=== PATIENT | female | born 1955 | race Caucasian/White ===

== ENCOUNTER 2017-02-03 18:00 | Inpatient (IN) | payer MEDICAID, OTHER, SELFPAY ==
[~2017-02-03] VITALS: Ht 165.1 cm; Wt 88.0 kg
[~2017-02-03 18:00] MED LIST: ACET50TAOT PO; ALB2.5NEB NEB; AUGM875T28 PO; BACT800T5 PO; NICO7PA TD
[2017-02-03] MEDS ORDERED: ACETAMINOPHEN 325 MG TAB As Ordered ONE (18:35)
[2017-02-03] MEDS ORDERED: ACETAMINOPHEN TAB 650MG DOSE (2X325MG) PO ONE (18:45)
[2017-02-03] MEDS ORDERED: NS 1,000 ML IV ONE ×2 (19:00→20:15)
[2017-02-03 19:27] LABS: BASO % 0.2 % (0.0-1.0); EOS # 0.1 10^3/uL (0.0-0.50); EOS % 0.3 % (0.0-3.0); IMMATURE GRANULOCYTE % 0.8 % (0-0); LYMPH # 0.5 10^3/uL (1.5-4.5); LYMPH % 3.4 % (24.0-44.0); MEAN CORPUSCULAR HEMOGLOBIN 24.3 pg (27.0-33.0); MEAN CORPUSCULAR HGB CONC 29.6 g/dl (32.0-36.5); MEAN CORPUSCULAR VOLUME 82.2 fl (80.0-96.0); MONO % 6.5 % (0.0-5.0); NEUTROPHILS # 13.9 10^3/uL (1.8-7.7); NEUTROPHILS % 88.8 % (36.0-66.0); PLATELET COUNT, AUTOMATED 239 10^3/uL (150-450); WHITE BLOOD COUNT 15.6 10^3/uL (4.0-10.0)
[2017-02-03 19:31] LABS: ADD MORPHOLOGY? YES; POSITIVE MORPH POS FLAG; RED CELL DISTRIBUTION WIDTH 20.6 % (11.5-14.5)
[2017-02-03 19:53] LABS: ALBUMIN 1.7 GM/DL (3.2-5.2); ALBUMIN/GLOBULIN RATIO 0.34 (1.00-1.93); ALKALINE PHOSPHATASE 145 U/L (45-117); ALT/SGPT 29 U/L (12-78); AMYLASE 17 U/L (25-115); ANION GAP 7 MEQ/L (8-16); AST/SGOT 102 U/L (15-37); BILIRUBIN,DIRECT 0.1 MG/DL (0.0-0.2); BILIRUBIN,TOTAL 0.3 MG/DL (0.2-1.0); BLOOD UREA NITROGEN 15 MG/DL (7-18); CALCIUM LEVEL 7.9 MG/DL (8.5-10.1); CARBON DIOXIDE LEVEL 25 MEQ/L (21-32); CHLORIDE LEVEL 101 MEQ/L (98-107); CREATININE FOR GFR 0.63 MG/DL (0.55-1.02); GLOMERULAR FILTRATION RATE > 60.0 (>51); GLUCOSE, FASTING 113 MG/DL (70-105); POTASSIUM SERUM 4.3 MEQ/L (3.5-5.1); SODIUM LEVEL 133 MEQ/L (136-145); TOTAL PROTEIN 6.7 GM/DL (6.4-8.2)
[2017-02-03 20:03] LABS: ANISOCYTOSIS 2+; HYPOCHROMASIA 1+; MICROCYTOSIS 1+; OVALOCYTES 1+; POIKILOCYTOSIS 1+
[2017-02-03] MEDS ORDERED: PIPERACILLIN/TAZOBACTAM SOD 3.375 GM in D5W 50 ML IV ONE (20:15)
[2017-02-03 20:20] LABS: INR 1.13
--- NOTE | 2017-02-03 20:30 | REPUSA ---
CLINICAL HISTORY: Pain. COMPARISON: 12/26/2015. TECHNIQUE: Multiple axial, coronal, sagittal CT images were obtained through the abdomen and pelvis without administration of oral or IV contrast material. COMMENTS: The liver is markedly lobulated and demonstrates scattered masses throughout the liver most compatibl e with metastatic disease. The masses are difficult to evaluate without intravenous contrast. Furth er evaluation is recommended with CT performed with hepatic protocol. The mass appears to measure up to 7 cm in diameter. 2.4 cm cyst is present in the right hepatic lobe. The spleen is normal. The gallbladder is within normal limits. The pancreas is of normal contour and attenuation characteristi cs. There is no evidence of adrenal mass. The kidneys are normal in size, shape and configuration. No renal or ureteral calculi are identified . There is no hydroureter or hydronephrosis. There is no evidence for appendicitis. No evidence for small or large bowel obstruction. There is n o evidence of abdominal ascites or lymphadenopathy. There is no evidence of intrinsic or extrinsic bladder mass. There is evidence of a large necrotic right inguinal mass which has markedly enlarged since the prior study now measures 9 x 8 cm. This is associated with marked nodular skin thickening. There is a nelson ggestion of internal cavitation necrosis. There is evidence of marked left inguinal adenopathy, lymp h nodes measuring up to 2.4 cm in cross section. There is also evidence of severe nodular wall thickening involving anus and rectum compatible with ma lignancy. Further evaluation with CT performed with intravenous and oral contrast is recommended. Images of the lung bases show no evidence of pleural or parenchymal mass. There are no pleural effus ions. The bony structures are free of lytic or blastic lesions. IMPRESSION: 1. The liver is markedly lobulated and demonstrates scattered masses throughout the liver most constantin tible with metastatic disease. The masses are difficult to evaluate without intravenous contrast. 2. Large right inguinal mass which has markedly enlarged since the prior study now measures 9 x 8 cm . This is associated with marked nodular skin thickening. Marked left inguinal adenopathy. 3. Severe nodular wall thickening involving anus and rectum compatible with malignancy. 4. Further evaluation with CT performed with intravenous and oral contrast is recommended.
[2017-02-03 20:55] LABS: FERRITIN 137 NG/ML (8-252); PERCENT SATURATION 6.5 % (13.2-45.0); TOTAL IRON BINDING CAPACITY 184 UG/DL (250-450)
[2017-02-03] MEDS ORDERED: TRIPOIN11 EXT (21:10)
[2017-02-03] MEDS ORDERED: VANCOMYCIN HCL 1,000 MG, VIAL MATE ADAPTER 1 EACH in D5W 250 ML IV SCH (22:15)
[2017-02-03] MEDS ORDERED: ONDANSETRON 4MG/2ML VIAL (J2405) IV PRN (22:15)
[2017-02-03] MEDS ORDERED: ACETAMINOPHEN TAB 650MG DOSE (2X325MG) PO PRN (22:15)
--- NOTE | 2017-02-03 22:29 | HPEPDOC ---
General Date of Admission 02/03/17 Primary Care Physician: Buck Funes MD Attending Physician: Hansel Hale MD Chief Complaint The patient is a 61-year-old female admitted with a reason for visit of PAIN. 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 The patient states that she has felt subjectively febrile, and notes that the mass/skin lesion on her right groin has also been more uncomfortable. She denies any acute complaints of lightheadedness, dizziness, chest pain, palpitations, abdominal pain, or any nausea/vomiting. In the ER, the patient was noted to be febrile with a MAXIMUM TEMPERATURE of 101.0. In addition, the patient was also noted to have a white blood cell count of 15.6. A CT scan of the abdomen/pelvis revealed markedly lobulated scattered masses throughout the Liver compatible with possible metastatic disease. In addition, the patient was noted to have an enlargement of the previously noted right inguinal mass with nodular skin thickening. The patient will be admitted to the [facility] service for further evaluation and management. Home Medications Scheduled PRN (Triple Antibiotic [phone]) 1 Oin Oin, 1 OIN EXT TID PRN for WOUNDS/SPIDER BITES, (Reported) Allergies Coded Allergies: Codeine (Verified Allergy, Mild, ITCHING, 07/20/12) Latex (Verified Allergy, Mild, ITCHING, 07/20/12) Ibuprofen (Unverified Allergy, Unknown, 12/26/15) NSAIDs (Unverified Adverse Reaction, Severe, BLEEDING, 02/03/17) Past Medical History Medical History As noted in HPI. Family History Significant Family History: No pertinent family hx Social History * Smoker: former Smoker Alcohol: occationally Drugs: denies Lives with her boyfriend. Review of Symptoms Other systems 10 point review of systems negative unless otherwise specified in HPI. Physical Examination General Exam: Positive: Alert, Cooperative, No Acute Distress ENT Exam: Positive: Atraumatic, Mucous membr. moist/pink Neck Exam: Negative: JVD Chest Exam: Positive: Clear to auscultation, Normal air movement Heart Exam: Positive: Tachycardic, Normal S1, Normal S2 Telemetry: Positive: Sinus Abdomen Exam: Positive: Soft, Negative: Tenderness Extremity Exam: Positive: Other (Large Right Inguinal Mass with superficial ulceration noted, right buttock lesion noted as well) Psych Exam: Positive: Oriented x 3 Vital Signs Vital Signs Date Time Temp Pulse Resp B/P (MAP) Pulse Ox O2 Delivery O2 Flow Rate FiO2 02/03/17 18:45 101.0 123 20 94/54 (67) 100 Nasal Cannula 2.0 Laboratory Data Labs 24H Laboratory Tests 2 02/03/17 19:08: Immature Granulocyte % (Auto) 0.8H, White Blood Count 15.6H, Red Blood Count 3.04L, Hemoglobin 7.4L, Hematocrit 25.0L, Mean Corpuscular Volume 82.2, Mean Corpuscular Hemoglobin 24.3L, Mean Corpuscular Hemoglobin Concent 29.6L, Red Cell Distribution Width 20.6H, Platelet Count 239, Neutrophils (%) (Auto) 88.8H , Lymphocytes (%) (Auto) 3.4L, Monocytes (%) (Auto) 6.5H, Eosinophils (%) (Auto ) 0.3, Basophils (%) (Auto) 0.2, Neutrophils # (Auto) 13.9H, Lymphocytes # (Auto ) 0.5L, Monocytes # (Auto) 1.0H, Eosinophils # (Auto) 0.1, Basophils # (Auto) 0.0, Immature Granulocyte # (Auto) 0.1H, Nucleated Red Blood Cells % (auto) 0.0 , Platelet Estimate NORMAL, Hypochromasia 1+, Poikilocytosis 1+, Anisocytosis 2+ , Microcytosis 1+, Macrocytosis 1+, Ovalocytes 1+, Anion Gap 7L, Glomerular Filtration Rate > 60.0, Calcium Level 7.9L, Iron Level 12L, Total Iron Binding Capacity 184L, Transferrin % Saturation 6.5L, Ferritin 137, Aspartate Amino Transf (AST/SGOT) 102H, Alanine Aminotransferase (ALT/SGPT) 29, Alkaline Phosphatase 145H, Total Bilirubin 0.3, Direct Bilirubin 0.1, Total Creatine Kinase 45, Creatine Kinase MB 1.0, Creatine Kinase MB Relative Index 2.22, Troponin I < 0.02, Total Protein 6.7, Albumin 1.7L, Albumin/Globulin Ratio 0.34L , Amylase Level 17L, Lipase 86 02/03/17 19:11: Lactic Acid Level 1.8 02/03/17 19:46: Prothrombin Time 14.7H, Prothromb Time International Ratio 1.13, Activated Partial Thromboplast Time 34.1 CBC/BMP Laboratory Tests 02/03/17 19:08 Red Blood Count 3.04 L, Mean Corpuscular Volume 82.2, Mean Corpuscular Hemoglobin 24.3 L, Mean Corpuscular Hemoglobin Concent 29.6 L, Red Cell Distribution Width 20.6 H, Neutrophils (%) (Auto) 88.8 H, Lymphocytes (%) (Auto ) 3.4 L, Monocytes (%) (Auto) 6.5 H, Eosinophils (%) (Auto) 0.3, Basophils (%) ( Auto) 0.2, Neutrophils # (Auto) 13.9 H, Lymphocytes # (Auto) 0.5 L, Monocytes # (Auto) 1.0 H, Eosinophils # (Auto) 0.1, Basophils # (Auto) 0.0 Microbiology Microbiology 02/03/17 Blood Culture, Received Pending 02/03/17 Blood Culture, Received Pending Plan / VTE VTE Prophylaxis Ordered?: Yes Plan Plan Sepsis possibly 2/2 Cellulitis of Large Right Inguinal Mass with notable skin thickening Ct abd/pel results noted WBC 15.6K, T. Max 101.0 in the ER Blood Cultures ordered Empirically covered with vancomycin and Zosyn Consider surgical consultation in the a.m., as the patient was seen last year by Dr. Umaña for management of the same Squamous cell carcinoma of the Anus Diagnosed in September [address] [facility] [address] scan of the abdomen/pelvis on admission revealed markedly lobulated scattered masses throughout the Liver compatible with possible metastatic disease. The patient has maintained that she does not want to undergo any further chemotherapy or radiation Goals of care were discussed in the ER--the patient is DNR/DNI, and a MOLST form was completed At this time, the patient states that she would like to continue with medical treatment including IV fluid hydration and IV antibiotics. The patient does state that she is interested in hospice, and they have been consulted. PFS also consulted Leukocytosis likely 2/2 above WBC 15.6K on admission Cont mgmt above Normocytic Anemia likely 2/2 Underlying Cancer Pt denies any dark colored stools, or active bleeding Anemia panel ordered 1 Unit of PRBC's ordered for hgb <8 We will cont to monitor hgb DVT Prophylaxis SCDs/TEDs Poor Prognosis discussed with patient and two sister in laws extensively at the bedside. The patient is aware of this, and hence would like to pursue hospice. The patient will be admitted to the service of Dr. Hale, of the [facility] physician group. They will begin to follow the patient on at 7 AM. JARAD ABREU MD Feb 03, 2017 22:29
[2017-02-03] MEDS ORDERED: VANCOMYCIN HCL 1,000 MG, VIAL MATE ADAPTER 1 EACH in D5W 250 ML IV ONE (23:00)
[2017-02-04] VITALS (7 sets, daily range): BP systolic 92–122; BP diastolic 40–59
--- NOTE | 2017-02-04 01:09 | REP ---
Clinical: Pain . Comparison: 12/25/2015 . Findings: The mediastinum and cardiac silhouette are stable and within normal limits for portable technique. The lung taylor are clear without acute consolidation, effusion, or pneumothorax. Skeletal structures are intact. Impression: No acute cardiopulmonary process appreciated. Signed by Jean Garcia MD 02/04/2017 01:01 A
[2017-02-04] MEDS: traMADol 50 MG TAB PO PRN ×2 (01:10→17:53)
[2017-02-04] MEDS: NS 1,000 ML IV SCH ×2 (02:19→17:54)
[2017-02-04] MEDS: PIPERACILLIN/TAZOBACTAM SOD 3.375 GM in D5W 50 ML IV SCH ×4 (02:21→21:23)
--- NOTE | 2017-02-04 03:28 | PHACANCOPD ---
PHARMACY VANCOMYCIN DOSING Pt Demographics Demographics Patient Age:61 , Weight: , Gender: female Adjusted Body Weight Date: 02/04/17, Adjusted Body Weight: [67.12] Kg Vancomycin Vancomycin indication: SEPSIS Vancomycin Target Ranges: 15-20 mcg/ml Vancomycin Load Y/N: No Load Dose Date Time Vancomycin Load Dose: Date: Time: Vancomycin Dose Date: 02/04/17. Current Vancomycin Dose: [750MG IV Q8H] Intermittent Dosing?: No Labs Labs Laboratory Tests 02/03/17 19:08 Red Blood Count 3.04 L, Mean Corpuscular Volume 82.2, Mean Corpuscular Hemoglobin 24.3 L, Mean Corpuscular Hemoglobin Concent 29.6 L, Red Cell Distribution Width 20.6 H, Neutrophils (%) (Auto) 88.8 H, Lymphocytes (%) (Auto ) 3.4 L, Monocytes (%) (Auto) 6.5 H, Eosinophils (%) (Auto) 0.3, Basophils (%) ( Auto) 0.2, Neutrophils # (Auto) 13.9 H, Lymphocytes # (Auto) 0.5 L, Monocytes # (Auto) 1.0 H, Eosinophils # (Auto) 0.1, Basophils # (Auto) 0.0 Micro Microbiology 02/03/17 Blood Culture, Received Pending 02/03/17 Blood Culture, Received Pending Creatinine Clearance Date:02/04/17. Creatinine Clearance: [101]CALCULATED. Pending Labs Vancomycin trough scheduled for 02/05@1300 Assessment and Plan Maintaining Current Dose?: Yes Reason for dose change: No Dose Change Pharmacist Note Pharmacist Note Date: 02/04/17. Pharmacist note:61YOF admitted w/sepsis(vanco trough goal 15-20) SCR=0.63,seaf=939.8 CALCULATED.TREATING WITH PIP/TAZO 3.375 GM Q6H AND Vancomycin per Pharmacy consult.Vanco 1 GM Iin ED@2300, then will begin Vancomycin 750mg iv q8h @ 0600.First trough is scheduled for 02/05@1300.-will continue to follow levels and labs NEVIN MELENDREZ PHARMACY Feb 04, 2017 03:28
[2017-02-04] MEDS: VANCOMYCIN HCL 750 MG, VIAL MATE ADAPTER 1 EACH in D5W 250 ML IV SCH ×3 (05:37→22:05)
[2017-02-04 05:52] LABS: BASO % 0.2 % (0.0-1.0); EOS # 0.1 10^3/uL (0.0-0.50); IMMATURE GRANULOCYTE % 1.3 % (0-0); LYMPH # 0.6 10^3/uL (1.5-4.5); LYMPH % 4.2 % (24.0-44.0); MEAN CORPUSCULAR HEMOGLOBIN 25.3 pg (27.0-33.0); MEAN CORPUSCULAR HGB CONC 30.8 g/dl (32.0-36.5); MEAN CORPUSCULAR VOLUME 81.9 fl (80.0-96.0); MONO # 0.9 10^3/uL (0.0-0.8); MONO % 6.6 % (0.0-5.0); NEUTROPHILS # 11.6 10^3/uL (1.8-7.7); NEUTROPHILS % 86.7 % (36.0-66.0); PLATELET COUNT, AUTOMATED 215 10^3/uL (150-450); RED CELL DISTRIBUTION WIDTH 19.4 % (11.5-14.5); WHITE BLOOD COUNT 13.4 10^3/uL (4.0-10.0)
[2017-02-04 06:11] LABS: ALBUMIN 1.5 GM/DL (3.2-5.2); ALBUMIN/GLOBULIN RATIO 0.36 (1.00-1.93); ALKALINE PHOSPHATASE 126 U/L (45-117); ALT/SGPT 23 U/L (12-78); ANION GAP 10 MEQ/L (8-16); AST/SGOT 80 U/L (15-37); BILIRUBIN,TOTAL 1.2 MG/DL (0.2-1.0); BLOOD UREA NITROGEN 16 MG/DL (7-18); CALCIUM LEVEL 7.5 MG/DL (8.5-10.1); CARBON DIOXIDE LEVEL 22 MEQ/L (21-32); CHLORIDE LEVEL 103 MEQ/L (98-107); CREATININE FOR GFR 0.69 MG/DL (0.55-1.02); GLOMERULAR FILTRATION RATE > 60.0 (>51); GLUCOSE, FASTING 103 MG/DL (70-105); MAGNESIUM LEVEL 1.8 MG/DL (1.8-2.4); POTASSIUM SERUM 3.8 MEQ/L (3.5-5.1); SODIUM LEVEL 135 MEQ/L (136-145); TOTAL PROTEIN 5.7 GM/DL (6.4-8.2)
--- NOTE | 2017-02-04 07:09 | ECGEPIP ---
Stationary ECG Study [facility] - ED Test Date: 2017-02-03 Pat Name: MARY RIBERA Department: Room: [place] [address] Gender: F [employer] Floor Installer: rn : 1955 Requested By: MARK Ferreira Order Number: [id number] Reading MD: Odalys Carmona Measurements Intervals [place] Rate: 129 P: 101 CO: 154 QRS: 89 QRSD: 88 T: 50 QT: 301 QTc: 442 Interpretive Statements SINUS TACHYCARDIA NONSPECIFIC ST & T-WAVE ABNORMALITY ABNORMAL RHYTHM ECG SIMILAR 12/25/15 Electronically Signed On 02-04-2017 7:09:28 EDT by Odalys Carmona
[2017-02-04] MEDS: FERROUS GLUCONATE 324 MG TAB PO SCH ×2 (10:31→21:23)
[2017-02-04 10:42] LABS: MEAN CORPUSCULAR HEMOGLOBIN 26.2 pg (27.0-33.0); MEAN CORPUSCULAR HGB CONC 31.7 g/dl (32.0-36.5); MEAN CORPUSCULAR VOLUME 82.7 fl (80.0-96.0); RED CELL DISTRIBUTION WIDTH 18.7 % (11.5-14.5); WHITE BLOOD COUNT 13.4 10^3/uL (4.0-10.0)
[2017-02-04] MEDS ORDERED: SLF 3 ML SYR IV PRN (12:15)
[2017-02-04] MEDS: SLF 3 ML SYR IV SCH ×2 (14:27→21:23)
[2017-02-05] VITALS (8 sets, daily range): BP systolic 90–110; BP diastolic 44–59
[2017-02-05] MEDS: traMADol 50 MG TAB PO PRN ×2 (02:26→18:41)
[2017-02-05] MEDS: PIPERACILLIN/TAZOBACTAM SOD 3.375 GM in D5W 50 ML IV SCH ×5 (02:27→20:48)
[2017-02-05] MEDS: SLF 3 ML SYR IV SCH ×3 (05:07→20:35)
[2017-02-05] MEDS: VANCOMYCIN HCL 750 MG, VIAL MATE ADAPTER 1 EACH in D5W 250 ML IV SCH ×4 (05:07→22:06)
[2017-02-05 06:34] LABS: MEAN CORPUSCULAR HEMOGLOBIN 25.5 pg (27.0-33.0); MEAN CORPUSCULAR HGB CONC 30.5 g/dl (32.0-36.5); MEAN CORPUSCULAR VOLUME 83.6 fl (80.0-96.0); PLATELET COUNT, AUTOMATED 238 10^3/uL (150-450); RED CELL DISTRIBUTION WIDTH 19.3 % (11.5-14.5); WHITE BLOOD COUNT 10.7 10^3/uL (4.0-10.0)
[2017-02-05 06:51] LABS: ALBUMIN 1.5 GM/DL (3.2-5.2); ALBUMIN/GLOBULIN RATIO 0.31 (1.00-1.93); ALKALINE PHOSPHATASE 156 U/L (45-117); ALT/SGPT 25 U/L (12-78); ANION GAP 9 MEQ/L (8-16); AST/SGOT 76 U/L (15-37); BILIRUBIN,TOTAL 0.5 MG/DL (0.2-1.0); BLOOD UREA NITROGEN 9 MG/DL (7-18); CARBON DIOXIDE LEVEL 21 MEQ/L (21-32); CHLORIDE LEVEL 104 MEQ/L (98-107); CREATININE FOR GFR 0.71 MG/DL (0.55-1.02); GLOMERULAR FILTRATION RATE > 60.0 (>51); GLUCOSE, FASTING 146 MG/DL (70-105); MAGNESIUM LEVEL 1.8 MG/DL (1.8-2.4); POTASSIUM SERUM 3.6 MEQ/L (3.5-5.1); SODIUM LEVEL 134 MEQ/L (136-145); TOTAL PROTEIN 6.4 GM/DL (6.4-8.2)
[2017-02-05] MEDS: FERROUS GLUCONATE 324 MG TAB PO SCH ×2 (09:48→20:34)
[2017-02-05] MEDS: INFLUENZA QUADRIVALENT PF VACCINE 0.5ML SYRINGE (90686) IM ONE (13:43)
[2017-02-05] MEDS ORDERED: INFLUENZA QUADRIVALENT PF VACCINE 0.5ML SYRINGE (90686) IM PRN (15:00)
--- NOTE | 2017-02-05 17:50 | CR ---
DATE OF CONSULTATION: 02/05/2017 REASON FOR CONSULTATION: Right groin mass. HISTORY OF PRESENT ILLNESS The patient is 61-year-old female who presents to the emergency room (ER) on 02/03/2017, with a chief complaint of right groin pain, bilateral lower extremity pains and fever. She has been treated for squamous cell carcinoma of the anus that was diagnosed in September 2015. She underwent radiation but did avoid any chemotherapy. In December of last year, she was in the hospital for the same conditions, right groin pain with a palpable mass as well as a fever. She had a slight abscess at that time that was aspirated. No other surgeries were completed. Currently her base complaint is difficulty with movement. She has pain in her legs. It is hard for her to get in and out of bed, hard to walk. She also has a slight fever with an elevated white count in the ER. CT of the abdomen and pelvis shows masses throughout the abdomen and the liver suggestive of metastatic disease, as well as increase in size of the previously noted right inguinal mass with nodular skin thickening. She was then admitted with possible sepsis from this right groin mass and I was asked to evaluate. Currently she denies any fevers. The pain in the groin has subsided somewhat. She does have increased swelling in the legs that is new for her today. No other current complaints. She has again denied any help as far as chemotherapy from an oncology standpoint. No recent procedures. PAST MEDICAL HISTORY: The squamous cell carcinoma of the anus. PAST SURGICAL HISTORY: Negative. ALLERGIES: CODEINE, LATEX, IBUPROFEN, NON-STEROIDAL ANTI-INFLAMMATORY DRUGS (NSAIDS) HOME MEDICATIONS: Please see med rec. FAMILY HISTORY: Noncontributory. SOCIAL HISTORY: Denies any current drug, alcohol, tobacco usage. REVIEW OF SYSTEMS: Pertinent positives and negatives as stated in the history of present illness (HPI). PHYSICAL EXAMINATION: GENERAL: The patient is alert and oriented times three. No acute distress. VITALS: Temperature 97.2, pulse 96, respirations 20, blood pressure 90/50, pulse oximetry 94% on room air. HEENT: Pupils equal, round, reactive to light and accommodation. HEART: S1, S2. Regular rate and rhythm. LUNGS: Clear to auscultation bilaterally. ABDOMEN: Soft. Tenderness to palpation epigastric and bilateral lower quadrants. There is very large fungating mass with pustules and boils on the surface of it, originating from the right groin. EXTREMITIES: Bilateral lower extremity pitting edema. LABORATORY DATA: White count 10.7, hemoglobin 9.5, platelets 238. IMAGING: CT abdomen and pelvis shows liver markedly lobulated and demonstrates scattered masses throughout, most compatible with metastatic disease. Large right inguinal mass markedly enlarged since prior study, now 9 x 8 cm with nodular skin thickening, another left inguinal adenopathy, severe nodular wall thickening involving the anus and rectum compatible with malignancy. 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 This large mass in her right groin was present well over a year ago and has just continued to increase in size. This is likely all malignancy related. There are no signs of any fluid collections, nothing to drain at this time. There are some small pustules on the outside of this mass. However, recommended just continue treating with intravenous (IV) antibiotics as needed. There is no need for any surgical drainage at this time, and there is no reason for any biopsies since we already know what this mass and her disease process is. She has declined any further cancer treatment. Therefore, anything beyond this should be just considered a palliative course. Her biggest complaint to me was pain control and ambulation. I have recommended we have social security assessor and physical therapy (PT) work with her. Likely we will set her up with a wheelchair and a cane. Her primary service can help control her pain but from a surgical standpoint, there is nothing else that I had to offer her. She understood and was appreciative of making the chance to talk to her. At this point, there is nothing left to do from a surgery standpoint, and if anything else is needed, please feel free to ask.
--- NOTE | 2017-02-05 17:59 | IPNPDOC ---
Subjective Date Seen The patient was seen on 02/05/17. Subjective Chief Complaint/HPI The patient is a 61-year-old female admitted with a reason for visit of Sepsis. Events since last encounter Had conversation with patient regarding current health status. No other family members are present. Patient understands that she has a serious illness. She was told she has stage IV carcinoma. Expressed her wishes of not wanting a lot of interventions. She would like to explore her options. She did mention however she would like to continue to have blood transfusions and antibiotics if needed. She will be talking with surgery later for possible biopsy. Patient expressed that she wishes to in the hospital if possible. Expressed her interest of not going to hospice. Complaining of some aching in her lower legs due to immobility laying in bed. Says when she moves around the pain is better. Is having pain in her rectal area. The tramadol has been helping with this pain. Constitutional: Denies: Chills, Fever Pulmonary: Denies: Dyspnea Cardiovascular: Denies: Chest Pain Gastrointestinal: Denies: Nausea, Vomiting, Abdominal Pain Objective Physical Examination General Exam: Positive: Alert, Cooperative, No Acute Distress ENT Exam: Positive: Atraumatic, Mucous membr. moist/pink Neck Exam: Negative: JVD Chest Exam: Positive: Clear to auscultation, Normal air movement Heart Exam: Positive: Rate Normal, Normal S1, Normal S2, Negative: Murmurs Abdomen Exam: Positive: Soft, Negative: Tenderness Extremity Exam: Positive: Other (Large Right Inguinal Mass with superficial ulceration noted, large right buttock lesion noted as well) Psych Exam: Positive: Memory Intact, Oriented x 3 (Orientated to person, place and time.) Assessment /Plan Assessment 1. Sepsis Continue to monitor vitals. Monitor patient's blood pressure. CRP elevated. Continue patient on empiric antibiotic treatment with IV Vancomycin and Zosyn. May change antibiotics based on cultures and sensitivities. One preliminary blood culture returned Gram positive cocci. Repeats were performed and are pending. Sources of infection is potentially a right inguinal mass. Item Value Date Time C-Reactive Protein, Quantitative 17.20 MG/DL H 02/05/17 0623 2. History of squamous cell anal cancer Dr. Gonzales has been consulted. Patient has seen Dr. Gonzales in the past. Had discussion with patient regarding current health status. Expressed that we were looking into other options with surgery and oncology. Patient expressed some of her wishes regarding treatments. That she would not want a lot done but at the same time still wished for things such as transfusions and antibiotics. We'll continue to have a conversation tomorrow. 3. Right inguinal mass, nodular thickening Most likely metastasis from patient's anal cancer. Has been getting bigger and painful. Surgery has been consulted. Dr. Esquivel will see the patient to discuss options such as biopsy. Patient is on tramadol every 8 hours 50 mg for pain at this time. Noted that this is providing relief. 4. Possible metastasis from squamous cell cancer CT scan abdomen showed evidence of metastasis. Impression below: 1.The liver is markedly lobulated and demonstrates scattered masses throughout the liver most compatible with metastatic disease. The masses are difficult to evaluate without intravenous contrast. 2. Large right inguinal mass which has markedly enlarged since the prior study now measures 9 x 8 cm. This is associated with marked nodular skin thickening. Marked left inguinal adenopathy. 3. Severe nodular wall thickening involving anus and rectum compatible with malignancy. 4. Further evaluation with CT performed with intravenous and oral contrast is recommended. 5. Leukocytosis Continue to monitor. Repeat in the morning. Item Value Date Time White Blood Count 10.7 10^3/uL H 02/05/17 06 6. Normocytic anemia Continue to monitor. Repeat in the morning. Patient had received 2 units of blood upon admission. No need for transfusion at this time. Item Value Date Time Hemoglobin 9.5 g/dl L 02/05/17 06 Hematocrit 31.1 % L 02/05/17 06 Plan/VTE VTE Prophylaxis Ordered?: Yes Disposition Patient is a 61-year-old female with squamous cell carcinoma of the anus with possible metastasis. Oncology has been consulted. Prognosis is poor. Patient is septic and continuing treatment at this time with vancomycin and Zosyn. VS, I&O, 24H, Fishbone Vital Signs/I&O Vital Signs Date Time Temp Pulse Resp B/P (MAP) Pulse Ox O2 Delivery O2 Flow Rate FiO2 02/05/17 16:00 97.2 96 20 90/50 (63) 94 Room Air 02/03/17 18:45 2.0 I&O- Last 24 Hours up to 6 AM 02/06/17 06:00 Intake Total 660 ml Output Total 300 ml Balance 360 ml Laboratory Data 24H LABS Laboratory Tests 2 02/05/17 06:23: Anion Gap 9, Glomerular Filtration Rate > 60.0, Blood Urea Nitrogen 9, Creatinine 0.71, Sodium Level 134L, Potassium Level 3.6, Chloride Level 104, Carbon Dioxide Level 21, Calcium Level 8.0L, Aspartate Amino Transf (AST/SGOT) 76H, Alanine Aminotransferase (ALT/SGPT) 25, Alkaline Phosphatase 156H, Total Bilirubin 0.5#, Total Protein 6.4, Albumin 1.5L, Magnesium Level 1.8, C- Reactive Protein, Quantitative 17.20H, Albumin/Globulin Ratio 0.31L 02/05/17 06:24: Nucleated Red Blood Cells % (auto) 0.0 02/05/17 12:50: Vancomycin Level Trough 14.4 CBC/BMP Laboratory Tests 02/05/17 06:23 Calcium Level 8.0 L, Aspartate Amino Transf (AST/SGOT) 76 H, Alanine Aminotransferase (ALT/SGPT) 25, Alkaline Phosphatase 156 H, Total Bilirubin 0.5 #, Total Protein 6.4, Albumin 1.5 L 02/05/17 06:24 Red Blood Count 3.72 L, Mean Corpuscular Volume 83.6, Mean Corpuscular Hemoglobin 25.5 L, Mean Corpuscular Hemoglobin Concent 30.5 L, Red Cell Distribution Width 19.3 H Microbiology Microbiology 02/05/17 Blood Culture, Received Pending 02/05/17 Blood Culture, Received Pending 02/03/17 Blood Culture - Preliminary, Resulted No growth after 24 hours . All specim... 02/03/17 Blood Culture - Preliminary, Resulted 02/04/17 Urine Culture, Received Pending GME ATTESTATION GME ATTESTATION My preceptor for this patient encounter was physically present in the building during the encounter and was fully available. As needed, all aspects of the patient interview, examination, medical decision making process, and medical care plan development were reviewed and approved by the preceptor. Preceptor is aware and concurs with the plan as stated in the body of this note and will attest to such by his/her cosignature. LIAM HANNA DO Feb 05, 2017 17:47
--- NOTE | 2017-02-05 21:05 | CR ---
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 HISTORY OF PRESENT ILLNESS: Nanci Eisenberg is a 61-year-old female who I saw in December of 2015 after she presented with fever, sepsis and CT scan revealed perianal abscess which was treated with IV antibiotics. She carries a known diagnosis of anal squamous cell carcinoma diagnosed in September of 2015 which had been nucleated. She underwent incision and drainage of the inner abscess and was started on treatment for anal squamous cell carcinoma with concurrent chemoradiation. She only received day 1 of mitomycin as well as Xeloda as she did not followup on subsequent treatments. After multiple attempts to contact the patient, the patient was unreachable. The patient did not also show for radiation at that time. The patient presented to the emergency room on 02/05/2017 with fever and fatigue. CT scan of the abdomen and pelvis revealed scattered masses throughout her liver compatible with metastatic disease. She also had swollen right inguinal lymph nodes with nodular skin thickening. Medical oncology was consulted regarding management of now metastatic anal squamous cell carcinoma. The patient is lying in bed. She currently denies any abdominal pain. She tells me clearly that she does not want any form of treatment. She has opted for Hospice at this time. She tells me that the reason she did not return our calls or followup with treatment in 2016 was because she never wanted to continue her treatments and wanted to go on Hospice. The patient states in "I do not want that stuff called chemotherapy. I would rather go on Hospice". PAST MEDICAL HISTORY: Obesity. Depression. Cervical dysplasia. Status post surgery and colposcopy. Symptomatic anemia. MEDICATIONS AT HOME: Triple antibiotic ointment. ALLERGIES: CODEINE, LATEX, IBUPROFEN, NSAIDS. FAMILY HISTORY: No history of malignancy in her family. SOCIAL HISTORY: Prior history of tobacco use, 20 pack year history. She quit in 2016. No alcohol or illicit drug use. VITAL SIGNS: Temperature 98.3, pulse 98, blood pressure 99/51, heart rate 64. GENERAL: She is lying in bed. She is in no acute distress. HEENT: No pallor or icteric sclerae. Oral mucosa is moist. Oropharynx is clear. HEART: Regular rate and rhythm. No murmurs heard. LUNGS: Clear bilaterally. No wheeze, rhonchi or rales. ABDOMEN: Soft, nontender, nondistended. There no hepatosplenomegaly or masses. EXTREMITIES: No edema. LYMPHATICS: She has a large 5 cm right inguinal lymph node which expresses some purulent material. CT scan as stated of the abdomen and pelvis as stated above. IMPRESSION AND PLAN: 61-year-old female with metastatic anal squamous cell carcinoma with mets to liver based on imaging, and also mets to the inguinal lymph nodes. I discussed with the patient in detail regarding management and treatment of metastatic anal squamous cell carcinoma. She knows that this is an incurable malignancy although treatable. She has opted to go on Hospice and does not want any systemic form of chemotherapy. I discussed with her primary hospitalist, Dr. Rawls as well. I will be available to see the patient if she changes her mind, although Hospice is not an unreasonable option given that this is an incurable malignancy.
[2017-02-06] VITALS (7 sets, daily range): BP systolic 86–107; BP diastolic 46–58
[2017-02-06] MEDS: PIPERACILLIN/TAZOBACTAM SOD 3.375 GM in D5W 50 ML IV SCH ×2 (03:36→08:45)
[2017-02-06] MEDS: VANCOMYCIN HCL 750 MG, VIAL MATE ADAPTER 1 EACH in D5W 250 ML IV SCH (05:02)
[2017-02-06] MEDS: SLF 3 ML SYR IV SCH ×3 (05:02→20:44)
[2017-02-06 05:34] LABS: BASO % 0.4 % (0.0-1.0); EOS # 0.2 10^3/uL (0.0-0.50); IMMATURE GRANULOCYTE % 1.2 % (0-0); LYMPH # 0.6 10^3/uL (1.5-4.5); LYMPH % 6.2 % (24.0-44.0); MEAN CORPUSCULAR HEMOGLOBIN 25.2 pg (27.0-33.0); MEAN CORPUSCULAR HGB CONC 30.2 g/dl (32.0-36.5); MEAN CORPUSCULAR VOLUME 83.7 fl (80.0-96.0); MONO # 0.6 10^3/uL (0.0-0.8); MONO % 6.9 % (0.0-5.0); NEUTROPHILS # 7.5 10^3/uL (1.8-7.7); NEUTROPHILS % 83.3 % (36.0-66.0); PLATELET COUNT, AUTOMATED 220 10^3/uL (150-450); RED CELL DISTRIBUTION WIDTH 19.7 % (11.5-14.5)
[2017-02-06 05:51] LABS: ALBUMIN 1.4 GM/DL (3.2-5.2); ALBUMIN/GLOBULIN RATIO 0.38 (1.00-1.93); ALKALINE PHOSPHATASE 171 U/L (45-117); ALT/SGPT 25 U/L (12-78); ANION GAP 9 MEQ/L (8-16); AST/SGOT 65 U/L (15-37); BILIRUBIN,TOTAL 0.3 MG/DL (0.2-1.0); BLOOD UREA NITROGEN 8 MG/DL (7-18); CALCIUM LEVEL 7.6 MG/DL (8.5-10.1); CARBON DIOXIDE LEVEL 24 MEQ/L (21-32); CHLORIDE LEVEL 106 MEQ/L (98-107); GLOMERULAR FILTRATION RATE > 60.0 (>51); GLUCOSE, FASTING 84 MG/DL (70-105); MAGNESIUM LEVEL 1.9 MG/DL (1.8-2.4); POTASSIUM SERUM 3.7 MEQ/L (3.5-5.1); SODIUM LEVEL 139 MEQ/L (136-145); TOTAL PROTEIN 5.1 GM/DL (6.4-8.2)
[2017-02-06] MEDS: FERROUS GLUCONATE 324 MG TAB PO SCH ×2 (08:44→20:44)
[2017-02-06] MEDS: NEOSPORIN TOP OINT 15GM TOP SCH ×2 (09:00→20:44)
[2017-02-06] MEDS: traMADol 50 MG TAB PO PRN (12:07)
[2017-02-06] MEDS: AZITHROMYCIN INJ 500 MG, VIAL MATE ADAPTER 1 EACH in D5W 250 ML IV SCH (14:08)
[2017-02-06] MEDS: PERCOCET 5MG/325MG TAB PO PRN ×2 (14:48→23:05)
--- NOTE | 2017-02-06 15:42 | IPNPDOC ---
Subjective Date Seen The patient was seen on 02/06/17. Subjective Chief Complaint/HPI The patient is a 61-year-old female admitted with a reason for visit of Sepsis. Events since last encounter Had discussion with patient regarding her wishes for medical care. She wishes to continue with medical treatment. Discussed her current medical status and what she knows of her prognosis. Patient does seem to understand she has a terminal illness. She is considering hospice but still wishes to come back to the hospital for antibiotics and blood transfusions if needed. Continuing medical therapy at this time. Does not want to have any chemotherapy. Is having some pain and swelling in left leg. She is lying on her left side but states she normally does this. Having pain in her leg and rectal area. Tramadol is not providing enough relief. Not sleeping as well because of it. Constitutional: Denies: Chills, Fever Pulmonary: Denies: Dyspnea, Cough Cardiovascular: Reports: Edema (swelling left leg), Denies: Chest Pain, Palpitations Musculoskeletal: Reports: Leg Pain (left leg) Objective Physical Examination General Exam: Positive: Alert, Cooperative, No Acute Distress ENT Exam: Positive: Atraumatic, Mucous membr. moist/pink Neck Exam: Negative: JVD Chest Exam: Positive: Clear to auscultation, Normal air movement Heart Exam: Positive: Rate Normal, Normal S1, Normal S2, Negative: Murmurs Abdomen Exam: Positive: Soft, Negative: Tenderness Extremity Exam: Positive: Swelling (left leg swelling, foot to thigh. ), Other (Large Right Inguinal Mass with superficial ulceration noted, large right buttock lesion noted as well. No left calf tenderness. ) Psych Exam: Positive: Memory Intact Assessment /Plan Assessment 1. Sepsis: BP continues to be soft. MAP 60s. Continue with IV fluids. Monitor vitals. Changing abx treatment. Stopping empiric van and zosyn. Starting IV Azithromycin 500 mg daily. One blood culture positive for Staph hominis. Other three are negative. Most likely a contaminate. Urine culture: positive E. Coli, suarez sensitive. Sources of infection is potentially a right inguinal mass. 2. E. coli in urine, urine culture, UTI: Treating with Azithromycin IV. 3. History of squamous cell anal cancer: Dr. Gonzales has been consulted. Dr. Gonzales saw patient yesterday. Per his note patient refuses chemo and is interested in Hospice. Had another discussion with patient regarding current health status. Asked what patient knew of her current health status. She understands that she has a terminal illness and will . She wanted to know if she can still come into the hospital to receive blood products and antibiotics. Considering hospice. Currently a DNR/DNI. 4. Right inguinal mass, nodular thickening: Most likely metastasis from patient's anal cancer. Has been getting bigger and painful. Surgery has been consulted. Dr. Esquivel had discussion yesterday with patient. Per discussing with him and his note, does not plan on biopsying lesion. No option for surgery to remove lesion. Would recommend physical therapy and wheelchair for when patient goes home. Patient is on tramadol every 8 hours 50 mg for pain at this time. Noted that she would like better pain relief. That pain is preventing her from sleeping comfortably. Adding Percocet 1 tab q8hp for pain. 5. Normocytic anemia: Hemoglobin 7.6 today. Repeat H+H at 5 PM. May transfuse depending repeat H+H. If stable, repeat in morning. Patient had received 2 units of blood upon admission. No need for transfusion at this time. 6. Left leg swelling: May be secondary to mass. Ordering Ultrasound to rule out DVT. 7. Possible metastasis from squamous cell cancer: CT scan of abdomen on admission showed evidence of metastasis in patient's Liver. 8. Leukocytosis: Continue to monitor. Most likely secondary to sepsis. Repeat in the morning. CODE STATUS: DNR/DNI Plan/VTE VTE Prophylaxis Ordered?: Yes VS, I&O, 24H, Fishbone Vital Signs/I&O Vital Signs Date Time Temp Pulse Resp B/P (MAP) Pulse Ox O2 Delivery O2 Flow Rate FiO2 02/06/17 08:00 98.0 68 18 94/46 (62) 97 Room Air 02/03/17 18:45 2.0 I&O- Last 24 Hours up to 6 AM 02/07/17 06:00 Intake Total 290 ml Balance 290 ml Laboratory Data 24H LABS Laboratory Tests 2 02/05/17 12:50: Vancomycin Level Trough 14.4 02/06/17 05:08: Immature Granulocyte % (Auto) 1.2H, White Blood Count 9.0, Red Blood Count 3.01L , Hemoglobin 7.6L, Hematocrit 25.2L, Mean Corpuscular Volume 83.7, Mean Corpuscular Hemoglobin 25.2L, Mean Corpuscular Hemoglobin Concent 30.2L, Red Cell Distribution Width 19.7H, Platelet Count 220, Neutrophils (%) (Auto) 83.3H , Lymphocytes (%) (Auto) 6.2L, Monocytes (%) (Auto) 6.9H, Eosinophils (%) (Auto ) 2.0, Basophils (%) (Auto) 0.4, Neutrophils # (Auto) 7.5, Lymphocytes # (Auto) 0.6L, Monocytes # (Auto) 0.6, Eosinophils # (Auto) 0.2, Basophils # (Auto) 0.0, Immature Granulocyte # (Auto) 0.1H, Nucleated Red Blood Cells % (auto) 0.0, Anion Gap 9, Glomerular Filtration Rate > 60.0, Blood Urea Nitrogen 8, Creatinine 0.50L, Sodium Level 139, Potassium Level 3.7, Chloride Level 106, Carbon Dioxide Level 24, Calcium Level 7.6L, Aspartate Amino Transf (AST/SGOT) 65H, Alanine Aminotransferase (ALT/SGPT) 25, Alkaline Phosphatase 171H, Total Bilirubin 0.3, Total Protein 5.1#L, Albumin 1.4L, Magnesium Level 1.9, C- Reactive Protein, Quantitative 9.45H, Albumin/Globulin Ratio 0.38L CBC/BMP Laboratory Tests 02/06/17 05:08 Red Blood Count 3.01 L, Mean Corpuscular Volume 83.7, Mean Corpuscular Hemoglobin 25.2 L, Mean Corpuscular Hemoglobin Concent 30.2 L, Red Cell Distribution Width 19.7 H, Neutrophils (%) (Auto) 83.3 H, Lymphocytes (%) (Auto ) 6.2 L, Monocytes (%) (Auto) 6.9 H, Eosinophils (%) (Auto) 2.0, Basophils (%) ( Auto) 0.4, Neutrophils # (Auto) 7.5, Lymphocytes # (Auto) 0.6 L, Monocytes # ( Auto) 0.6, Eosinophils # (Auto) 0.2, Basophils # (Auto) 0.0, Calcium Level 7.6 L , Aspartate Amino Transf (AST/SGOT) 65 H, Alanine Aminotransferase (ALT/SGPT) 25 , Alkaline Phosphatase 171 H, Total Bilirubin 0.3, Total Protein 5.1 #L, Albumin 1.4 L Microbiology Microbiology 02/05/17 Blood Culture - Preliminary, Resulted No growth after 24 hours . All specim... 02/05/17 Blood Culture - Preliminary, Resulted No growth after 24 hours . All specim... 02/03/17 Blood Culture - Preliminary, Resulted No Growth after 48 hours. All Specime... 02/03/17 Blood Culture - Final, Complete Staphylococcus Hominis Ssp Lidia 02/05/17 MRSA Screen, Received Pending 02/04/17 Urine Culture - Final, Complete Escherichia Coli GME ATTESTATION GME ATTESTATION My preceptor for this patient encounter was physically present in the building during the encounter and was fully available. As needed, all aspects of the patient interview, examination, medical decision making process, and medical care plan development were reviewed and approved by the preceptor. Preceptor is aware and concurs with the plan as stated in the body of this note and will attest to such by his/her cosignature. LIAM HANNA DO Feb 06, 2017 10:32
--- NOTE | 2017-02-06 16:22 | REP ---
Deep vein duplex ultrasonography of the left lower extremity: The left popliteal vein is partially compressible. The femoral vein and common femoral vein are not compressible throughout. There is no vascular flow in the femoral vein or common femoral vein with color Doppler assessment. There is a slight vascular flow in the popliteal vein. Impression: There is nonocclusive thrombus in the popliteal vein. There is occlusive thrombus throughout the femoral vein and common femoral vein. In the left inguinal area. There is a large fluid collection measuring 5.0 x 2.1 x 2.3 cm of uncertain significance. This could represent a hematoma, abscess or suppurative node. Signed by Arsen Jordan MD 02/06/2017 04:14 P
[2017-02-07 04:00] VITALS: BP 109/54
[2017-02-07 05:22] VITALS: BP_SYST 108; BP_SYST 117; BP_SYST 93; BP_DIAS 54; BP_DIAS 55; BP_DIAS 81
[2017-02-07 05:35] LABS: BASO % 0.2 % (0.0-1.0); EOS # 0.2 10^3/uL (0.0-0.50); EOS % 2.6 % (0.0-3.0); IMMATURE GRANULOCYTE % 1.7 % (0-0); LYMPH # 0.7 10^3/uL (1.5-4.5); LYMPH % 8.4 % (24.0-44.0); MEAN CORPUSCULAR HEMOGLOBIN 25.2 pg (27.0-33.0); MEAN CORPUSCULAR HGB CONC 29.6 g/dl (32.0-36.5); MEAN CORPUSCULAR VOLUME 85.4 fl (80.0-96.0); MONO # 0.6 10^3/uL (0.0-0.8); MONO % 7.6 % (0.0-5.0); NEUTROPHILS # 6.4 10^3/uL (1.8-7.7); NEUTROPHILS % 79.5 % (36.0-66.0); PLATELET COUNT, AUTOMATED 246 10^3/uL (150-450); WHITE BLOOD COUNT 8.1 10^3/uL (4.0-10.0)
[2017-02-07 05:51] LABS: ALBUMIN 1.4 GM/DL (3.2-5.2); ALBUMIN/GLOBULIN RATIO 0.31 (1.00-1.93); ALKALINE PHOSPHATASE 169 U/L (45-117); ALT/SGPT 29 U/L (12-78); ANION GAP 8 MEQ/L (8-16); AST/SGOT 62 U/L (15-37); BILIRUBIN,TOTAL 0.2 MG/DL (0.2-1.0); BLOOD UREA NITROGEN 8 MG/DL (7-18); CARBON DIOXIDE LEVEL 25 MEQ/L (21-32); CHLORIDE LEVEL 106 MEQ/L (98-107); GLOMERULAR FILTRATION RATE > 60.0 (>51); GLUCOSE, FASTING 71 MG/DL (70-105); POTASSIUM SERUM 3.6 MEQ/L (3.5-5.1); SODIUM LEVEL 139 MEQ/L (136-145); TOTAL PROTEIN 5.9 GM/DL (6.4-8.2)
[2017-02-07] MEDS: SLF 3 ML SYR IV SCH ×3 (06:00→22:19)
[2017-02-07 07:15] VITALS: BP 96/52
[2017-02-07] MEDS: FERROUS GLUCONATE 324 MG TAB PO SCH ×2 (08:11→22:18)
[2017-02-07] MEDS: NEOSPORIN TOP OINT 15GM TOP SCH ×2 (08:12→22:20)
[2017-02-07] MEDS: PERCOCET 5MG/325MG TAB PO PRN ×2 (08:12→18:34)
--- NOTE | 2017-02-07 08:40 | IPNPDOC ---
Text Note Date of Service The patient was seen on 02/07/17. NOTE Subjective: Patient seen and examined at bedside. She still seems ambiguous regarding her wishes for medical care. She has no new medical complaints today. She was informed regarding her LLE thrombus. Objective: General: NAD, lying comfortably in bed HEENT: NC/AT, EOMI Lungs: CTA B/L Heart: +S1S2, RRR Abd: soft, NT, +BS Ext: LLE edema, large right inguinal mass with superficial ulceration, right buttock lesion Psych: AAOx3 A/P: 1. Sepsis: - resolved - continue Azithro based on BCx = staph hominis, UC = E.coli - repeat BCx negative 2. UTI - as per above 3. History of squamous cell anal cancer: Dr. Samuels has been consulted. Dr. Samuels saw patient yesterday. Per his note patient refuses chemo and is interested in Hospice. 4. Right inguinal mass, nodular thickening: Most likely metastasis from patient's anal cancer. Has been getting bigger and painful. Surgery has been consulted. Dr. Esquivel had discussion, no indication for biopsy. No option for surgery to remove lesion. 5. Pain control - tramadol every 8 hours 50 mg for pain at this time - Percocet 1 tab q8hp for pain. 5. Normocytic anemia: - continue to trend 6. DVT - anticoagulation contraindicated - discussed at length with patient at bedside 7. Possible metastasis from squamous cell cancer: CT scan of abdomen on admission showed evidence of metastasis in patient's Liver. 8. Leukocytosis: Continue to monitor. Most likely secondary to sepsis. Repeat in the morning. CODE STATUS: DNR/DNI VS,Fishbone, I+O VS, Fishbone, I+O Laboratory Tests 02/06/17 17:35 02/07/17 05:11 Red Blood Count 3.01 L, Mean Corpuscular Volume 85.4, Mean Corpuscular Hemoglobin 25.2 L, Mean Corpuscular Hemoglobin Concent 29.6 L, Red Cell Distribution Width 20.0 H, Neutrophils (%) (Auto) 79.5 H, Lymphocytes (%) (Auto ) 8.4 L, Monocytes (%) (Auto) 7.6 H, Eosinophils (%) (Auto) 2.6, Basophils (%) ( Auto) 0.2, Neutrophils # (Auto) 6.4, Lymphocytes # (Auto) 0.7 L, Monocytes # ( Auto) 0.6, Eosinophils # (Auto) 0.2, Basophils # (Auto) 0.0, Calcium Level 8.0 L , Aspartate Amino Transf (AST/SGOT) 62 H, Alanine Aminotransferase (ALT/SGPT) 29 , Alkaline Phosphatase 169 H, Total Bilirubin 0.2, Total Protein 5.9 L, Albumin 1.4 L Vital Signs Date Time Temp Pulse Resp B/P (MAP) Pulse Ox O2 Delivery O2 Flow Rate FiO2 02/07/17 08:12 18 02/07/17 05:22 92 108/54 (72) 101 93/55 (68) 122 117/81 (93) 02/07/17 04:15 Room Air 02/07/17 04:00 97.6 98 02/03/17 18:45 2.0 LIAM HERNANDEZ MD Feb 07, 2017 08:40
[2017-02-07] MEDS: AZITHROMYCIN INJ 500 MG, VIAL MATE ADAPTER 1 EACH in D5W 250 ML IV SCH (13:49)
[2017-02-07] MEDS: traMADol 50 MG TAB PO PRN (15:01)
[2017-02-07 16:00] VITALS: BP 105/57
[2017-02-07 17:30] VITALS: BP 108/62
[2017-02-07 22:00] VITALS: BP 94/44
[2017-02-08] MEDS: SLF 3 ML SYR IV SCH ×3 (06:00→21:32)
[2017-02-08 06:10] LABS: BASO % 0.5 % (0.0-1.0); EOS # 0.2 10^3/uL (0.0-0.50); EOS % 1.9 % (0.0-3.0); IMMATURE GRANULOCYTE % 1.7 % (0-0); LYMPH # 0.5 10^3/uL (1.5-4.5); LYMPH % 5.8 % (24.0-44.0); MEAN CORPUSCULAR HGB CONC 30.6 g/dl (32.0-36.5); MEAN CORPUSCULAR VOLUME 84.9 fl (80.0-96.0); MONO # 0.6 10^3/uL (0.0-0.8); MONO % 6.7 % (0.0-5.0); NEUTROPHILS # 7.4 10^3/uL (1.8-7.7); NEUTROPHILS % 83.4 % (36.0-66.0); PLATELET COUNT, AUTOMATED 248 10^3/uL (150-450); WHITE BLOOD COUNT 8.8 10^3/uL (4.0-10.0)
[2017-02-08 06:18] LABS: ADD MORPHOLOGY? YES; POSITIVE MORPH POS FLAG; RED CELL DISTRIBUTION WIDTH 20.7 % (11.5-14.5)
[2017-02-08 06:30] LABS: ALBUMIN 1.5 GM/DL (3.2-5.2); ALBUMIN/GLOBULIN RATIO 0.33 (1.00-1.93); ALKALINE PHOSPHATASE 159 U/L (45-117); ALT/SGPT 26 U/L (12-78); ANION GAP 9 MEQ/L (8-16); AST/SGOT 72 U/L (15-37); BILIRUBIN,TOTAL 0.3 MG/DL (0.2-1.0); BLOOD UREA NITROGEN 9 MG/DL (7-18); CALCIUM LEVEL 8.4 MG/DL (8.5-10.1); CARBON DIOXIDE LEVEL 23 MEQ/L (21-32); CHLORIDE LEVEL 106 MEQ/L (98-107); CREATININE FOR GFR 0.42 MG/DL (0.55-1.02); GLOMERULAR FILTRATION RATE > 60.0 (>51); GLUCOSE, FASTING 76 MG/DL (70-105); MAGNESIUM LEVEL 2.1 MG/DL (1.8-2.4); POTASSIUM SERUM 3.7 MEQ/L (3.5-5.1); SODIUM LEVEL 138 MEQ/L (136-145); TOTAL PROTEIN 6.1 GM/DL (6.4-8.2)
[2017-02-08 08:08] LABS: ANISOCYTOSIS 3+
[2017-02-08 08:09] LABS: HYPOCHROMASIA 1+; POIKILOCYTOSIS 1+; POLYCHROMASIA 1+
[2017-02-08] MEDS: FERROUS GLUCONATE 324 MG TAB PO SCH ×2 (08:52→21:33)
[2017-02-08] MEDS: PERCOCET 5MG/325MG TAB PO PRN ×3 (08:53→23:13)
[2017-02-08] MEDS: NEOSPORIN TOP OINT 15GM TOP SCH ×2 (10:06→21:32)
[2017-02-08] MEDS: AZITHROMYCIN INJ 500 MG, VIAL MATE ADAPTER 1 EACH in D5W 250 ML IV SCH (13:55)
[2017-02-08 14:00] VITALS: BP 116/60
[2017-02-08] MEDS ORDERED: INFLUENZA QUADRIVALENT PF VACCINE 0.5ML SYRINGE (90686) IM ONE (15:00)
[2017-02-08] MEDS: INFLUENZA QUADRIVALENT PF VACCINE 0.5ML SYRINGE (90686) IM ONE (15:33)
--- NOTE | 2017-02-08 18:51 | IPNPDOC ---
Subjective Date Seen The patient was seen on 02/08/17. Subjective Chief Complaint/HPI The patient is a 61-year-old female admitted with a reason for visit of Sepsis. Events since last encounter Patient states that pain has been under better control since starting Percocet every 8 hours for pain. That she's been able to have some better sleep. She is planning on discussing more with hospice today about what to do post discharge. Patient so has some interest in pursuing hospice. Denies any new complaints or symptoms. Constitutional: Denies: Chills, Fever Eyes: Denies: Pain ENT: Denies: Head Aches Pulmonary: Denies: Dyspnea, Cough Cardiovascular: Denies: Chest Pain, Palpitations Musculoskeletal: Denies: Back Pain Objective Physical Examination General Exam: Positive: Alert, Cooperative, No Acute Distress ENT Exam: Positive: Atraumatic, Mucous membr. moist/pink Neck Exam: Negative: JVD Chest Exam: Positive: Clear to auscultation, Normal air movement Heart Exam: Positive: Rate Normal, Normal S1, Normal S2, Negative: Murmurs Abdomen Exam: Positive: Soft, Negative: Tenderness Extremity Exam: Positive: Swelling (left lower extremity, no redness. Nonpitting edema. ) Psych Exam: Positive: Memory Intact, Oriented x 3 (Orientated to person, place and time.) Assessment /Plan Assessment 1. Sepsis: Resolved. Continue to monitor vitals. Continue IV Azithromycin 500 mg daily for Urine culture, positive E. Coli, suarez sensitive. One blood culture positive for Staph hominis. Other three are negative. Most likely a contaminate. 2. E. coli in urine, urine culture, UTI: Treating with Azithromycin IV daily. 3. History of squamous cell anal cancer: Dr. Gonzales has been consulted and saw patient in the hospital. Per his note patient refuses chemo and is interested in Hospice. Will be discussing hospice with PFS and hospice. Currently a DNR/DNI. 4. Right inguinal mass, nodular thickening: Most likely metastasis from patient's anal cancer. Surgery has been consulted. Dr. Esquivel had discussion with patient in the hospital. Per discussing with him and his note, does not plan on biopsying lesion. No option for surgery to remove lesion. Would recommend physical therapy and wheelchair for when patient goes home. Patient is on tramadol every 8 hours 50 mg and Percocet 1 tab q8hp for pain. 5. Normocytic anemia: Hemoglobin 7.6 today. Repeat H+H at 5 PM. May transfuse depending repeat H+H. If stable, repeat in morning. Patient had received 2 units of blood upon admission. No need for transfusion at this time. 6. Left leg swelling: May be secondary to mass. DVT on ultrasound. Discussed not starting anticoagulation due to low hemoglobin and bleeding risk. 7. Possible metastasis from squamous cell cancer: CT scan of abdomen on admission showed evidence of metastasis in patient's Liver. 8. Leukocytosis: Continue to monitor. Most likely secondary to sepsis. Repeat in the morning. CODE STATUS: DNR/DNI Plan/VTE VTE Prophylaxis Ordered?: Yes Disposition Discuss hospice today. Work on plan for discharge. VS, I&O[facility] Vital Signs/I&O Vital Signs Date Time Temp Pulse Resp B/P (MAP) Pulse Ox O2 Delivery O2 Flow Rate FiO2 02/08/17 09:23 18 02/08/17 06:00 97.2 84 99 02/07/17 22:00 94/44 (61) 02/07/17 19:04 Room Air 02/03/17 18:45 2.0 Laboratory Data 24H LABS Laboratory Tests 2 02/08/17 05:39: Immature Granulocyte % (Auto) 1.7H, White Blood Count 8.8, Red Blood Count 2.92L , Hemoglobin 7.6L, Hematocrit 24.8L, Mean Corpuscular Volume 84.9, Mean Corpuscular Hemoglobin 26.0L, Mean Corpuscular Hemoglobin Concent 30.6L, Red Cell Distribution Width 20.7H, Platelet Count 248, Neutrophils (%) (Auto) 83.4H , Lymphocytes (%) (Auto) 5.8L, Monocytes (%) (Auto) 6.7H, Eosinophils (%) (Auto ) 1.9, Basophils (%) (Auto) 0.5, Neutrophils # (Auto) 7.4, Lymphocytes # (Auto) 0.5L, Monocytes # (Auto) 0.6, Eosinophils # (Auto) 0.2, Basophils # (Auto) 0.0, Immature Granulocyte # (Auto) 0.2H, Nucleated Red Blood Cells % (auto) 0.0, Platelet Estimate NORMAL, Polychromasia 1+, Hypochromasia 1+, Poikilocytosis 1+ , Anisocytosis 3+, Anion Gap 9, Glomerular Filtration Rate > 60.0, Blood Urea Nitrogen 9, Creatinine 0.42L, Sodium Level 138, Potassium Level 3.7, Chloride Level 106, Carbon Dioxide Level 23, Calcium Level 8.4L, Aspartate Amino Transf ( AST/SGOT) 72H, Alanine Aminotransferase (ALT/SGPT) 26, Alkaline Phosphatase 159H , Total Bilirubin 0.3, Total Protein 6.1L, Albumin 1.5L, Magnesium Level 2.1, Albumin/Globulin Ratio 0.33L CBC/BMP Laboratory Tests 02/08/17 05:39 Red Blood Count 2.92 L, Mean Corpuscular Volume 84.9, Mean Corpuscular Hemoglobin 26.0 L, Mean Corpuscular Hemoglobin Concent 30.6 L, Red Cell Distribution Width 20.7 H, Neutrophils (%) (Auto) 83.4 H, Lymphocytes (%) (Auto ) 5.8 L, Monocytes (%) (Auto) 6.7 H, Eosinophils (%) (Auto) 1.9, Basophils (%) ( Auto) 0.5, Neutrophils # (Auto) 7.4, Lymphocytes # (Auto) 0.5 L, Monocytes # ( Auto) 0.6, Eosinophils # (Auto) 0.2, Basophils # (Auto) 0.0, Calcium Level 8.4 L , Aspartate Amino Transf (AST/SGOT) 72 H, Alanine Aminotransferase (ALT/SGPT) 26 , Alkaline Phosphatase 159 H, Total Bilirubin 0.3, Total Protein 6.1 L, Albumin 1.5 L Microbiology Microbiology 02/05/17 Blood Culture - Preliminary, Resulted No Growth after 72 hours. All specime... 02/05/17 Blood Culture - Preliminary, Resulted No Growth after 72 hours. All specime... 02/03/17 Blood Culture - Preliminary, Resulted No Growth after 72 hours. All specime... 02/03/17 Blood Culture - Final, Complete Staphylococcus Hominis Ssp Lidia 02/05/17 MRSA Screen - Final, Complete 02/04/17 Urine Culture - Final, Complete Escherichia Coli GME ATTESTATION GME ATTESTATION My preceptor for this patient encounter was physically present in the building during the encounter and was fully available. As needed, all aspects of the patient interview, examination, medical decision making process, and medical care plan development were reviewed and approved by the preceptor. Preceptor is aware and concurs with the plan as stated in the body of this note and will attest to such by his/her cosignature. LIAM HANNA DO Feb 08, 2017 10:37
[2017-02-08 22:00] VITALS: BP 104/71
[2017-02-09] MEDS: PERCOCET 5MG/325MG TAB PO PRN ×4 (05:55→21:52)
[2017-02-09] MEDS: SLF 3 ML SYR IV SCH ×3 (05:57→20:22)
[2017-02-09 06:00] VITALS: BP 118/60
[2017-02-09 06:38] LABS: BASO % 0.4 % (0.0-1.0); EOS # 0.2 10^3/uL (0.0-0.50); EOS % 2.6 % (0.0-3.0); IMMATURE GRANULOCYTE % 1.5 % (0-0); LYMPH # 0.5 10^3/uL (1.5-4.5); LYMPH % 6.4 % (24.0-44.0); MEAN CORPUSCULAR HEMOGLOBIN 25.7 pg (27.0-33.0); MEAN CORPUSCULAR HGB CONC 30.2 g/dl (32.0-36.5); MEAN CORPUSCULAR VOLUME 84.9 fl (80.0-96.0); MONO # 0.6 10^3/uL (0.0-0.8); MONO % 6.6 % (0.0-5.0); NEUTROPHILS # 6.9 10^3/uL (1.8-7.7); NEUTROPHILS % 82.5 % (36.0-66.0); PLATELET COUNT, AUTOMATED 241 10^3/uL (150-450); WHITE BLOOD COUNT 8.4 10^3/uL (4.0-10.0)
[2017-02-09 06:42] LABS: ADD MORPHOLOGY? YES; POSITIVE MORPH POS FLAG; RED CELL DISTRIBUTION WIDTH 21.1 % (11.5-14.5)
[2017-02-09 07:02] LABS: ALBUMIN 1.5 GM/DL (3.2-5.2); ALBUMIN/GLOBULIN RATIO 0.31 (1.00-1.93); ALKALINE PHOSPHATASE 162 U/L (45-117); ALT/SGPT 22 U/L (12-78); ANION GAP 10 MEQ/L (8-16); AST/SGOT 73 U/L (15-37); BILIRUBIN,TOTAL 0.3 MG/DL (0.2-1.0); BLOOD UREA NITROGEN 11 MG/DL (7-18); CALCIUM LEVEL 8.2 MG/DL (8.5-10.1); CARBON DIOXIDE LEVEL 22 MEQ/L (21-32); CHLORIDE LEVEL 106 MEQ/L (98-107); CREATININE FOR GFR 0.47 MG/DL (0.55-1.02); GLOMERULAR FILTRATION RATE > 60.0 (>51); GLUCOSE, FASTING 97 MG/DL (70-105); POTASSIUM SERUM 3.6 MEQ/L (3.5-5.1); SODIUM LEVEL 138 MEQ/L (136-145); TOTAL PROTEIN 6.4 GM/DL (6.4-8.2)
[2017-02-09 07:16] LABS: ANISOCYTOSIS 3+; POIKILOCYTOSIS 1+; POLYCHROMASIA 1+
[2017-02-09 07:17] LABS: HYPOCHROMASIA 1+
[2017-02-09] MEDS: AZITHROMYCIN 250 MG TAB PO SCH (08:47)
[2017-02-09] MEDS: FERROUS GLUCONATE 324 MG TAB PO SCH ×2 (08:47→20:22)
[2017-02-09] MEDS: NEOSPORIN TOP OINT 15GM TOP SCH ×2 (09:00→20:22)
[2017-02-09 14:00] VITALS: BP 113/58
--- NOTE | 2017-02-09 18:05 | IPNPDOC ---
Subjective Date Seen The patient was seen on 02/09/17. Subjective Chief Complaint/HPI The patient is a 61-year-old female admitted with a reason for visit of Sepsis. Events since last encounter Saw patient at bedside. She reports talking to hospice and got card from them. Looking to talk to boyfriend about options. Has been unable to get a hold of him. Percocet has been helping with pain. No fevers or chills. Still has swelling in left leg. Constitutional: Denies: Chills, Fever Pulmonary: Denies: Dyspnea, Cough Cardiovascular: Denies: Chest Pain, Palpitations Gastrointestinal: Denies: Nausea, Vomiting, Abdominal Pain Objective Physical Examination General Exam: Positive: Alert, Cooperative, No Acute Distress ENT Exam: Positive: Atraumatic, Mucous membr. moist/pink Chest Exam: Positive: Clear to auscultation, Normal air movement Heart Exam: Positive: Rate Normal, Normal S1, Normal S2, Negative: Murmurs Abdomen Exam: Positive: Soft, Negative: Tenderness Extremity Exam: Positive: Edema (left lower extremity) Psych Exam: Positive: Memory Intact Assessment /Plan Assessment 1. Sepsis: Resolved. Continue to monitor vitals. Switched to Azithromycin 500 mg daily, started azithromycin 02/06. Urine culture , positive E. Coli, suarez sensitive. One blood culture positive for Staph hominis. Other three are negative. Most likely a contaminate. 2. E. coli in urine, urine culture, UTI: Continue with Azithromycin PO daily. 3. History of squamous cell anal cancer: Dr. Gonzales has been consulted and saw patient in the hospital. Per his note patient refuses chemo and is interested in Hospice. Patient discussed with hospice. Current plan is to go to hospice center or transfer for hospice. Cannot clear for hospice at home per hospice. 4. Right inguinal mass, nodular thickening: Most likely metastasis from patient's anal cancer. Surgery has been consulted. Dr. Esquivel had discussion with patient in the hospital. Per discussing with him and his note, does not plan on biopsying lesion. No option for surgery to remove lesion. Would recommend physical therapy and wheelchair for when patient goes home. Patient is on tramadol every 8 hours 50 mg and Percocet 1 tab q4hp for pain. 5. Normocytic anemia: Hemoglobin 7.8 today. Repeat in the morning. Patient had received 2 units of blood upon admission. No need for transfusion at this time. 6. Left leg swelling: DVT on ultrasound. Discussed previously not starting anticoagulation due to low hemoglobin and bleeding risk. 7. Possible metastasis from squamous cell cancer: CT scan of abdomen on admission showed evidence of metastasis in patient's Liver. 8. Leukocytosis: Continue to monitor. Most likely secondary to sepsis. Repeat in the morning. CODE STATUS: DNR/DNI Plan/VTE VTE Prophylaxis Ordered?: Yes VS, I&O, 24H, Fishbone Vital Signs/I&O Vital Signs Date Time Temp Pulse Resp B/P (MAP) Pulse Ox O2 Delivery O2 Flow Rate FiO2 02/09/17 17:43 18 Room Air 02/09/17 14:00 97.7 105 113/58 (76) 96 02/03/17 18:45 2.0 I&O- Last 24 Hours up to 6 AM 02/10/17 05:59 Intake Total 660 ml Output Total 700 ml Balance -40 ml Laboratory Data 24H LABS Laboratory Tests 2 02/09/17 06:31: Immature Granulocyte % (Auto) 1.5H, White Blood Count 8.4, Red Blood Count 3.04L , Hemoglobin 7.8L, Hematocrit 25.8L, Mean Corpuscular Volume 84.9, Mean Corpuscular Hemoglobin 25.7L, Mean Corpuscular Hemoglobin Concent 30.2L, Red Cell Distribution Width 21.1H, Platelet Count 241, Neutrophils (%) (Auto) 82.5H , Lymphocytes (%) (Auto) 6.4L, Monocytes (%) (Auto) 6.6H, Eosinophils (%) (Auto ) 2.6, Basophils (%) (Auto) 0.4, Neutrophils # (Auto) 6.9, Lymphocytes # (Auto) 0.5L, Monocytes # (Auto) 0.6, Eosinophils # (Auto) 0.2, Basophils # (Auto) 0.0, Immature Granulocyte # (Auto) 0.1H, Nucleated Red Blood Cells % (auto) 0.0, Platelet Estimate NORMAL, Polychromasia 1+, Hypochromasia 1+, Poikilocytosis 1+ , Anisocytosis 3+, Anion Gap 10, Glomerular Filtration Rate > 60.0, Blood Urea Nitrogen 11, Creatinine 0.47L, Sodium Level 138, Potassium Level 3.6, Chloride Level 106, Carbon Dioxide Level 22, Calcium Level 8.2L, Aspartate Amino Transf ( AST/SGOT) 73H, Alanine Aminotransferase (ALT/SGPT) 22, Alkaline Phosphatase 162H , Total Bilirubin 0.3, Total Protein 6.4, Albumin 1.5L, Magnesium Level 2.0, Albumin/Globulin Ratio 0.31L CBC/BMP Laboratory Tests 02/09/17 06:31 Red Blood Count 3.04 L, Mean Corpuscular Volume 84.9, Mean Corpuscular Hemoglobin 25.7 L, Mean Corpuscular Hemoglobin Concent 30.2 L, Red Cell Distribution Width 21.1 H, Neutrophils (%) (Auto) 82.5 H, Lymphocytes (%) (Auto ) 6.4 L, Monocytes (%) (Auto) 6.6 H, Eosinophils (%) (Auto) 2.6, Basophils (%) ( Auto) 0.4, Neutrophils # (Auto) 6.9, Lymphocytes # (Auto) 0.5 L, Monocytes # ( Auto) 0.6, Eosinophils # (Auto) 0.2, Basophils # (Auto) 0.0, Calcium Level 8.2 L , Aspartate Amino Transf (AST/SGOT) 73 H, Alanine Aminotransferase (ALT/SGPT) 22 , Alkaline Phosphatase 162 H, Total Bilirubin 0.3, Total Protein 6.4, Albumin 1.5 L Microbiology Microbiology 02/05/17 Blood Culture - Preliminary, Resulted No Growth after 72 hours. All specime... 02/05/17 Blood Culture - Preliminary, Resulted No Growth after 72 hours. All specime... 02/03/17 Blood Culture - Final, Complete NO GROWTH AFTER 5 DAYS 02/03/17 Blood Culture - Final, Complete Staphylococcus Hominis Ssp Lidia 02/05/17 MRSA Screen - Final, Complete 02/04/17 Urine Culture - Final, Complete Escherichia Coli GME ATTESTATION GME ATTESTATION My preceptor for this patient encounter was physically present in the building during the encounter and was fully available. As needed, all aspects of the patient interview, examination, medical decision making process, and medical care plan development were reviewed and approved by the preceptor. Preceptor is aware and concurs with the plan as stated in the body of this note and will attest to such by his/her cosignature. LIAM HANNA DO Feb 09, 2017 18:05
[2017-02-09 22:00] VITALS: BP 106/59
[2017-02-10] MEDS: SLF 3 ML SYR IV SCH ×3 (05:01→21:30)
[2017-02-10 05:57] LABS: BASO % 0.5 % (0.0-1.0); EOS # 0.3 10^3/uL (0.0-0.50); EOS % 3.1 % (0.0-3.0); IMMATURE GRANULOCYTE % 1.8 % (0-0); LYMPH # 0.6 10^3/uL (1.5-4.5); LYMPH % 7.4 % (24.0-44.0); MEAN CORPUSCULAR HEMOGLOBIN 25.5 pg (27.0-33.0); MEAN CORPUSCULAR HGB CONC 29.8 g/dl (32.0-36.5); MEAN CORPUSCULAR VOLUME 85.8 fl (80.0-96.0); MONO # 0.6 10^3/uL (0.0-0.8); MONO % 6.7 % (0.0-5.0); NEUTROPHILS # 6.6 10^3/uL (1.8-7.7); NEUTROPHILS % 80.5 % (36.0-66.0); PLATELET COUNT, AUTOMATED 229 10^3/uL (150-450); WHITE BLOOD COUNT 8.2 10^3/uL (4.0-10.0)
[2017-02-10 06:00] VITALS: BP 107/64
[2017-02-10 06:00] LABS: ADD MORPHOLOGY? YES; POSITIVE MORPH POS FLAG; RED CELL DISTRIBUTION WIDTH 21.2 % (11.5-14.5)
[2017-02-10 06:11] LABS: ALBUMIN 1.5 GM/DL (3.2-5.2); ALKALINE PHOSPHATASE 141 U/L (45-117); ALT/SGPT 22 U/L (12-78); ANION GAP 4 MEQ/L (8-16); AST/SGOT 83 U/L (15-37); BILIRUBIN,TOTAL 0.2 MG/DL (0.2-1.0); BLOOD UREA NITROGEN 14 MG/DL (7-18); CALCIUM LEVEL 8.4 MG/DL (8.5-10.1); CARBON DIOXIDE LEVEL 29 MEQ/L (21-32); CHLORIDE LEVEL 105 MEQ/L (98-107); CREATININE FOR GFR 0.47 MG/DL (0.55-1.02); GLOMERULAR FILTRATION RATE > 60.0 (>51); GLUCOSE, FASTING 75 MG/DL (70-105); MAGNESIUM LEVEL 1.9 MG/DL (1.8-2.4); POTASSIUM SERUM 4.4 MEQ/L (3.5-5.1); SODIUM LEVEL 138 MEQ/L (136-145); TOTAL PROTEIN 6.5 GM/DL (6.4-8.2)
[2017-02-10 06:42] LABS: HYPOCHROMASIA 2+
[2017-02-10 06:43] LABS: ANISOCYTOSIS 3+
[2017-02-10] MEDS: FERROUS GLUCONATE 324 MG TAB PO SCH ×2 (09:22→20:27)
[2017-02-10] MEDS: AZITHROMYCIN 250 MG TAB PO SCH (09:22)
[2017-02-10] MEDS: NEOSPORIN TOP OINT 15GM TOP SCH ×2 (09:22→20:27)
[2017-02-10] MEDS: PERCOCET 5MG/325MG TAB PO PRN ×2 (09:25→18:57)
[2017-02-10 14:00] VITALS: BP 116/53
--- NOTE | 2017-02-10 17:46 | IPN ---
DATE: 02/10/2017 Ms. Eisenberg is feeling well today. She is frustrated. She would like to go home. She has no complaints of pain, chest pain, shortness of breath. Temperature is 98, pulse 99, respiratory rate 18, blood pressure 107/64, 95% on room air. Intake and output notable for a positive fluid balance of 500. She is awake, appropriately interactive, pleasantly conversant. Breathing is symmetrical. I:E ratio is 1:3. Heart is distant sounding, normal S1, S2. Abdomen is soft, doughy, nontender. LABORATORY DATA: Hemoglobin is 7.2 down from 7.8. BUN is 14, creatinine 0.47. ASSESSMENT: This is a 61-year-old with end-stage squamous cell anal cancer. PLAN: 1. The patient has squamous cell anal cancer and is a candidate for hospice. She is apparently not a candidate for outpatient hospice. The patient is not cleared for hospice at home. We will look for another discharge plan. 2. The patient has ongoing anemia. This is most likely a mixed anemia. It is certainly microcytic. We will transfuse another unit of packed red blood cells today. The patient is open to the idea of transfusion and antibiotic if that would help her.
[2017-02-10 22:00] VITALS: BP 118/52
[2017-02-11] MEDS: PERCOCET 5MG/325MG TAB PO PRN ×4 (00:23→21:07)
[2017-02-11] MEDS: SLF 3 ML SYR IV SCH ×3 (05:03→21:56)
[2017-02-11 06:00] VITALS: BP 122/53
[2017-02-11 08:10] LABS: MEAN CORPUSCULAR HEMOGLOBIN 26.4 pg (27.0-33.0); MEAN CORPUSCULAR HGB CONC 30.8 g/dl (32.0-36.5); MEAN CORPUSCULAR VOLUME 85.7 fl (80.0-96.0); PLATELET COUNT, AUTOMATED 217 10^3/uL (150-450)
[2017-02-11 08:16] LABS: RED CELL DISTRIBUTION WIDTH 20.3 % (11.5-14.5)
[2017-02-11] MEDS: AZITHROMYCIN 250 MG TAB PO SCH (08:38)
[2017-02-11] MEDS: FERROUS GLUCONATE 324 MG TAB PO SCH ×2 (08:38→21:06)
[2017-02-11] MEDS: NEOSPORIN TOP OINT 15GM TOP SCH ×2 (10:11→21:00)
[2017-02-11 14:00] VITALS: BP 102/53
--- NOTE | 2017-02-11 19:47 | IPNPDOC ---
Subjective Date Seen The patient was seen on 02/11/17. Subjective Chief Complaint/HPI The patient is a 61-year-old female admitted with a reason for visit of Sepsis. Events since last encounter Saw patient at bedside. No complaints today. Talking more about what to do once leaves the hospital. Constitutional: Denies: Chills, Fever Pulmonary: Denies: Dyspnea, Cough Cardiovascular: Denies: Chest Pain, Palpitations Objective Physical Examination General Exam: Positive: Alert, Cooperative, No Acute Distress ENT Exam: Positive: Atraumatic, Mucous membr. moist/pink Chest Exam: Positive: Clear to auscultation, Normal air movement Heart Exam: Positive: Rate Normal, Normal S1, Normal S2, Negative: Murmurs Abdomen Exam: Positive: Soft, Negative: Tenderness Extremity Exam: Positive: Edema (left lower extremity) Psych Exam: Positive: Memory Intact Assessment /Plan Assessment 1. E. coli in urine, urine culture, UTI: Switched to Azithromycin 500 mg daily, started azithromycin 02/06. Urine culture , positive E. Coli, suarez sensitive. One blood culture positive for Staph hominis. Other three are negative. Most likely a contaminate. 2. History of squamous cell anal cancer: Dr. Gonzales has been consulted and saw patient in the hospital. Per his note patient refuses chemo and is interested in Hospice. Patient discussed with hospice. Current plan is to go to hospice center or transfer for hospice. Cannot clear for hospice at home per hospice. 3. Right inguinal mass, nodular thickening: Most likely metastasis from patient's anal cancer. Surgery has been consulted. Dr. Esquivel had discussion with patient in the hospital. Per discussing with him and his note, does not plan on biopsying lesion. No option for surgery to remove lesion. Would recommend physical therapy and wheelchair for when patient goes home. Patient is on tramadol every 8 hours 50 mg and Percocet 1 tab q4hp for pain. 4. Normocytic anemia: Hemoglobin 8.5 today. Repeat in the morning. Received repeat transfusion yesterday. No need for transfusion at this time. 5. Left leg swelling: DVT on ultrasound. Discussed previously not starting anticoagulation due to low hemoglobin and bleeding risk. Continue to monitor. 6. Possible metastasis from squamous cell cancer: CT scan of abdomen on admission showed evidence of metastasis in patient's Liver. 7. Leukocytosis: Resolved. CODE STATUS: DNR/DNI Plan/VTE VTE Prophylaxis Ordered?: Yes Disposition Discussed hospice with patient. She would like to go home. Will discuss with PFS. VS, I&O, 24H, Fishbone Vital Signs/I&O Vital Signs Date Time Temp Pulse Resp B/P (MAP) Pulse Ox O2 Delivery O2 Flow Rate FiO2 02/11/17 14:49 16 02/11/17 14:00 99.2 86 102/53 (69) 96 Room Air I&O- Last 24 Hours up to 6 AM 02/12/17 06:00 Intake Total 360 ml Balance 360 ml Laboratory Data 24H LABS Laboratory Tests 2 02/11/17 07:48: Nucleated Red Blood Cells % (auto) 0.0 CBC/BMP Laboratory Tests 02/11/17 07:48 Red Blood Count 3.22 L, Mean Corpuscular Volume 85.7, Mean Corpuscular Hemoglobin 26.4 L, Mean Corpuscular Hemoglobin Concent 30.8 L, Red Cell Distribution Width 20.3 H Microbiology Microbiology 02/05/17 Blood Culture - Final, Complete NO GROWTH AFTER 5 DAYS 02/05/17 Blood Culture - Final, Complete NO GROWTH AFTER 5 DAYS 02/03/17 Blood Culture - Final, Complete NO GROWTH AFTER 5 DAYS 02/03/17 Blood Culture - Final, Complete Staphylococcus Hominis Ssp Lidia 02/05/17 MRSA Screen - Final, Complete 02/04/17 Urine Culture - Final, Complete Escherichia Coli GME ATTESTATION GME ATTESTATION My preceptor for this patient encounter was physically present in the building during the encounter and was fully available. As needed, all aspects of the patient interview, examination, medical decision making process, and medical care plan development were reviewed and approved by the preceptor. Preceptor is aware and concurs with the plan as stated in the body of this note and will attest to such by his/her cosignature. LIAM HANNA DO Feb 11, 2017 19:47
[2017-02-11 22:00] VITALS: BP 113/56
[2017-02-12] MEDS: SLF 3 ML SYR IV SCH (05:38)
[2017-02-12 06:00] VITALS: BP 112/55
[2017-02-12] MEDS: PERCOCET 5MG/325MG TAB PO PRN ×2 (07:57→12:54)
[2017-02-12] MEDS: FERROUS GLUCONATE 324 MG TAB PO SCH (08:01)
[2017-02-12] MEDS: NEOSPORIN TOP OINT 15GM TOP SCH (08:02)
[2017-02-12] MEDS ORDERED: PERCOCET PO (12:54)
[2017-02-12] MEDS ORDERED: FERR32TA PO (12:54)
[2017-02-12 14:00] VITALS: BP 107/54
--- NOTE | 2017-02-12 16:50 | DS.PDOC ---
Discharge Summary General Date of Admission Feb 03, 2017 at 22:01 Date of Discharge 02/12/2017 Primary Care Physician: Buck Funes MD Attending Physician: MARK MCCORMICK MD Discharge Summary PROCEDURES PERFORMED DURING STAY: None ADMITTING DIAGNOSES: 1. Sepsis possibly secondary to cellulitis. 2. Squamous cell carcinoma of the anus. 3. Leukocytosis. 4. Normocytic anemia DISCHARGE DIAGNOSES: 1. Large right inguinal mass, likely metastasis. 2. Squamous cell carcinoma of the anus, metastasis stage IV. 3. Normocytic anemia. COMPLICATIONS/CHIEF COMPLAINT: Sepsis. HISTORY OF PRESENT ILLNESS: Patient is a 61-year-old female past medical history significant for squamous cell carcinoma of the anus presents to the emergency room for increased weakness and fatigue for the past month. She had a subjective fever at home. Patient subjectively noticed a mass or lesion in her right groin that made her more uncomfortable. In the ER patient had a temperature 100.1F. Also noted to have an elevated white blood cell counts. CT abdomen and pelvis showed markedly lobulated scattered masses throughout liver compatible with possible metastases. In addition the enlargement in the right inguinal groin was noted for nodular skin thickening. HOSPITAL COURSE: Upon admission to the hospital patient was consulted with oncology and surgery. Dr. Samuels visited patient and discussed possible chemotherapy options. Patient was not interested in any of these treatments. She insisted on no chemotherapy. Surgery, Dr. Esquivel was also consulted. Discussed with patient that there was no surgical options. Did not recommend biopsying the inguinal lesion. Patient had long discussions about what she would like for her treatment. That she would like to go home and not pursue constant treatments. Hospice came in and discussed possible home hospice with patient. They ultimately determined that patient would not qualify for home hospice and would need to go somewhere for hospice. She decided for no hospice for now and would rather go home. Physical therapy worked with patient and deemed she is able to go home and care for herself. DISCHARGE MEDICATIONS: Please see below. ALLERGIES: Please see below. PHYSICAL EXAMINATION ON DISCHARGE: VITAL SIGNS: Please see below. GENERAL: Alert, comfortable. No distress. HEENT: Atraumatic. Nares patent. NECK: Supple, no lymphadenopathy. CARDIOVASCULAR EXAMINATION: Normal s1 and s2, no murmurs. RESPIRATORY EXAMINATION: Clear to auscultation, no wheezing. ABDOMINAL EXAMINATION: Soft, nondistended. EXTREMITIES: Left leg swollen. SKIN: No lesions or rashes. NEUROLOGICAL EXAMINATION: Speech intact. PSYCHIATRIC EXAMINATION: Normal affect. LABORATORY DATA: Please see below. IMAGING: Duplex US left lower extremity impression showed: There is nonocclusive thrombus in the popliteal vein. There is occlusive thrombus throughout the femoral vein and common femoral vein. In the left inguinal area. There is a large fluid collection measuring 5.0 x 2.1 x 2.3 cm of uncertain significance. This could represent a hematoma, abscess or suppurative node. Abdominal CT and pelvis impression showed 1. The liver is markedly lobulated and demonstrates scattered masses throughout the liver most compatible with metastatic disease. The masses are difficult to evaluate without intravenous contrast. 2. Large right inguinal mass which has markedly enlarged since the prior study now measures 9 x 8 cm. This is associated with marked nodular skin thickening. Marked left inguinal adenopathy. 3. Severe nodular wall thickening involving anus and rectum compatible with malignancy. 4. Further evaluation with CT performed with intravenous and oral contrast is recommended. Chest radiograph impression showed No acute cardiopulmonary process appreciated. PROGNOSIS: Stable ACTIVITY: As tolerated DIET: Regular DISCHARGE PLAN: Plan is to discharge patient home with limited medical treatments and home health. Patient is currently not on hospice. DISPOSITION: Home. DISCHARGE INSTRUCTIONS: 1. Follow-up with Dr. Arthur 02/23/17. 2. Continue on ferrous gluconate supplements. 3. Continue Percocet as needed for pain. 4. Continue triple antibiotic ointment for wounds. DISCHARGE CONDITION: Stable TIME SPENT ON DISCHARGE: Greater than 30 minutes. Vital Signs/I&Os Vital Signs Date Time Temp Pulse Resp B/P (MAP) Pulse Ox O2 Delivery O2 Flow Rate FiO2 02/12/17 14:00 98.0 101 18 107/54 (71) 97 Room Air I&O- Last 24 Hours up to 6 AM 02/13/17 06:00 Intake Total 280 ml Output Total 0 ml Balance 280 ml Microbiology Microbiology 02/05/17 Blood Culture - Final, Complete NO GROWTH AFTER 5 DAYS 02/05/17 Blood Culture - Final, Complete NO GROWTH AFTER 5 DAYS 02/03/17 Blood Culture - Final, Complete NO GROWTH AFTER 5 DAYS 02/03/17 Blood Culture - Final, Complete Staphylococcus Hominis Ssp Lidia 02/05/17 MRSA Screen - Final, Complete 02/04/17 Urine Culture - Final, Complete Escherichia Coli Discharge Medications Scheduled Ferrous Gluconate (Ferrous Gluconate) 324 Mg Tab, 324 MG PO DAILY Scheduled PRN (Triple Antibiotic 5-400-5000) 1 Oin Oin, 1 OIN EXT TID PRN for WOUNDS/SPIDER BITES, (Reported) Oxycodone/Acetaminophen (Percocet 5MG/325MG Tablet) 1 Tab Tab, 1 TAB PO Q4HP PRN for MILD/MODERATE PAIN (PS 1-7) Allergies Coded Allergies: Codeine (Verified Allergy, Mild, ITCHING, 07/20/12) Latex (Verified Allergy, Mild, ITCHING, 07/20/12) Ibuprofen (Unverified Allergy, Unknown, 12/26/15) NSAIDs (Unverified Adverse Reaction, Severe, BLEEDING, 02/03/17) GME ATTESTATION GME ATTESTATION My preceptor for this patient encounter was physically present in the building during the encounter and was fully available. As needed, all aspects of the patient interview, examination, medical decision making process, and medical care plan development were reviewed and approved by the preceptor. Preceptor is aware and concurs with the plan as stated in the body of this note and will attest to such by his/her cosignature. LIAM HANNA DO Feb 12, 2017 16:39
== END 2017-02-12 15:00 | disposition home health service (06) | DRG 720 ==
LOC: EDBD 18:00 → M ED 18:00 → M ED INP 22:01 → M PCU 02-04 00:26 → M MSPAV 02-07 17:32
PROVIDERS: ADMIT Internal Medicine; ATTEND Internal Medicine
PROC: 30233N1 Transfusion of Nonautologous Red Blood Cells into Peripheral Vein, Percutaneous Approach (ICD-10-PCS; principal; 2017-02-03)
DX: A41.9 Sepsis, unspecified organism (principal); C78.7 Secondary malignant neoplasm of liver and intrahepatic bile duct; C79.89 Secondary malignant neoplasm of other specified sites; I82.412 Acute embolism and thrombosis of left femoral vein; L03.314 Cellulitis of groin; I82.432 Acute embolism and thrombosis of left popliteal vein; C21.0 Malignant neoplasm of anus, unspecified; N39.0 Urinary tract infection, site not specified; D50.9 Iron deficiency anemia, unspecified; Z66 Do not resuscitate; Z88.5 Allergy status to narcotic agent; Z88.8 Allergy status to other drugs, medicaments and biological substances; Z91.040 Latex allergy status; Z87.891 Personal history of nicotine dependence; B96.29 Other Escherichia coli [E. coli] as the cause of diseases classified elsewhere